=== PATIENT | female | born 1995 | race Caucasian/White ===

== ENCOUNTER 2022-04-21 09:48 | Emergency (ER) | payer MEDICAID ==
[~2022-04-21] VITALS: Ht 160 cm; Wt 90.7 kg
[2022-04-21 10:05] VITALS: BP_SYST 133
[2022-04-21] MEDS ORDERED: AMOX-423 PO (11:15)
[2022-04-21] MEDS ORDERED: IBUP-1969 PO (11:15)
== END 2022-04-21 11:28 | disposition home or self-care (01) ==
LOC: SED 09:48
DX: H66.91 Otitis media, unspecified, right ear (principal); H92.01 Otalgia, right ear; Z79.899 Other long term (current) drug therapy
CPT/HCPCS: 99283